=== PATIENT | female | born 1990 | race Caucasian/White ===

== ENCOUNTER → 2017-07-18 14:38 | Outpatient (CLI) | payer OTHER, SELFPAY ==
--- NOTE | 2017-07-18 14:43 | US_ITS ---
STUDY: ULTRASOUND TRANSVAGINAL CLINICAL: Female, 26 years old. Pelvic pain. History of polycystic ovarian syndrome. TECHNIQUE: Transabdominal and Transvaginal COMPARISON: None. FINDINGS: Normal uterine size measuring 7.2 x 4.0 x 3.2 cm in maximal craniocaudal dimension. There are no myometrial masses. Normal endometrial thickness measuring 6 mm. There are no endometrial masses, and there is no fluid in the endometrial cavity. Endometrial echoes are hyperechoic. Normal uterine cervix. Right ovary measures 3.4 x 3.2 x 2.1 cm. Numerous relatively uniform small follicles are seen. Left ovary measures 3.1 x 3.3 x 2.5 cm. Numerous relatively uniform small follicles are seen. There is no free fluid in the pelvis. Polycystic ovary disease: The appearance of the ovaries is consistent with polycystic ovarian syndrome, but note that the condition requires certain clinical and historical findings. Correlate clinically. US/Pelvic (Non ) IMPRESSION: No definite abnormality. The appearance of the ovaries can be seen with polycystic ovarian syndrome. Electronically Signed: Jesus Bocanegra MD at 10:00 EDT , Service support ,
--- NOTE | 2017-07-18 15:05 | US_ITS ---
STUDY: ULTRASOUND TRANSVAGINAL CLINICAL: Female, 26 years old. Pelvic pain. History of polycystic ovarian syndrome. TECHNIQUE: Transabdominal and Transvaginal COMPARISON: None. FINDINGS: Normal uterine size measuring 7.2 x 4.0 x 3.2 cm in maximal craniocaudal dimension. There are no myometrial masses. Normal endometrial thickness measuring 6 mm. There are no endometrial masses, and there is no fluid in the endometrial cavity. Endometrial echoes are hyperechoic. Normal uterine cervix. Right ovary measures 3.4 x 3.2 x 2.1 cm. Numerous relatively uniform small follicles are seen. Left ovary measures 3.1 x 3.3 x 2.5 cm. Numerous relatively uniform small follicles are seen. There is no free fluid in the pelvis. Polycystic ovary disease: The appearance of the ovaries is consistent with polycystic ovarian syndrome, but note that the condition requires certain clinical and historical findings. Correlate clinically. US/Transvaginal Non- IMPRESSION: No definite abnormality. The appearance of the ovaries can be seen with polycystic ovarian syndrome. Electronically Signed: Jesus Bocanegra MD at 10:00 EDT , Service support ,
[2017-07-18 17:53] LABS: hCG Titer Quant., Serum < 1 mIU/mL (<9 non-preg)
[2017-07-18 17:58] LABS: Progesterone Level 1.03 ng/mL (See Comment)
[2017-07-18 17:59] LABS: Estradiol 42.8 pg/mL; T4 Free Direct 0.94 ng/dL (0.76-1.46); Thyroid Stim Hormone (TSH) 1.23 uIU/mL (0.358-3.74)
[2017-07-18 18:03] LABS: Hematocrit 42.9 % (37-47); Hemoglobin 13.9 g/dl (12.0-15.0); Mean Corp Hgb Conc 32.4 g/gl (32-36); Mean Corpuscular Hgb 29.4 pg (27.0-32.0); Mean Corpuscular Volume 90.7 fL (81-99); Mean Platelet Vol. 10.5 fl (6.2-12.0); Platelet Count 329 K/mm3 (150-450); RBC Distribution Width CV 12.5 % (11.6-14.6); RBC Distribution Width SD 41.4 fl (35.1-43.9); Red Blood Count 4.73 M/mm3 (4.2-5.4)
[2017-07-18 18:17] LABS: Scan Indicated on CBC? Y/N NO
[2017-07-18 18:39] LABS: Hemoglobin A1c 4.7 % (4.2-6.3)
== END ==
LOC: USHP 15:44 → WOBLAB 15:44
PROVIDERS: Family Provider Physician Assistant; PCP Physician Assistant; Visit Provider Obstetrics & Gynecology
DX: E28.2 Polycystic ovarian syndrome (principal); N92.5 Other specified irregular menstruation; R10.2 Pelvic and perineal pain
CPT/HCPCS: 36415; 82670; 83036; 84144; 84403; 84439; 84443; 84481; 84702; 85027

== ENCOUNTER → 2017-07-22 13:39 | Outpatient (CLI) | payer OTHER, SELFPAY ==
[2017-07-22 17:57] LABS: Follicle Stimulating Hormone 4.6 mIU/mL; Luteinizing Hormone 10.5 mIU/mL
[2017-07-22 18:00] LABS: Progesterone Level 1.14 ng/mL (See Comment)
== END ==
PROVIDERS: Visit Provider Obstetrics & Gynecology
DX: N92.5 Other specified irregular menstruation (principal)
CPT/HCPCS: 36415; 83001; 83002; 84144; 84403

== ENCOUNTER → 2018-02-16 14:49 | Outpatient (CLI) | payer OTHER, SELFPAY ==
[2018-02-21 11:05] LABS: HPV Reflexed? NOT INDICATED
== END ==
PROVIDERS: Visit Provider Obstetrics & Gynecology
DX: Z12.4 Encounter for screening for malignant neoplasm of cervix (principal)
CPT/HCPCS: 88175; G0145

== ENCOUNTER → 2023-07-11 | Outpatient (CLI) | payer BC, SELFPAY ==
[2023-07-11 10:16] LABS: AST(SGOT) 16 U/L (15-37); Alanine Aminotransfer ALT/SGPT 20 U/L (13-56); Albumin, Serum 3.9 g/dL (3.2-5.0); Alkaline Phosphatase 80 U/L (45-117); Bilirubin, Direct 0.09 mg/dL (0.00-0.30); Globulin 4.3 g/dL (2.2-4.2); Protein, Total 8.2 g/dL (6.4-8.2)
== END | disposition home or self-care (01) ==
LOC: PAVLAB 09:12
PROVIDERS: PCP Physician Assistant; Referring Provider Surgery; Visit Provider Surgery
DX: K82.8 Other specified diseases of gallbladder (principal)
CPT/HCPCS: 36415; 80076

== ENCOUNTER 2023-07-15 09:27 | Day surgery (SDC) | payer BC, SELFPAY ==
[2023-07-15] VITALS (10 sets, daily range): BP systolic 110–127; BP diastolic 79–90; PULSE 59–79; RESP 16; TEMP 36.1–36.9; O2SAT 92–98; BMI 27.5
--- NOTE | 2023-07-15 | GALL_PTH ---
PATHOLOGY RESULTS PATIENT: SHLOMO PAULSON LOC: [facility] – [place] U#:[id number] AGE/SX: 32/F ROOM: RE07/15/[address]: Dr. Silvia Baptiste MD : 1990 BED: DIS: 07/15/2023 SPEC #: [id number] RECD: 07/15/23 13:18 STATUS: NAREN RESheila #: [id number] JOSEFINA: 07/15/23 00:[address]: Silvia Baptiste DEPT: SURGICAL PATHOLOGY RECD BY: Omer Rico ENTERED: 07/18/23 10:33 SP TYPE: DOMINIC LARA DR: PEACE Rose Tissues: Gallbladder, NOS Procedures: Surgery Specimen Level III HEADER OPERATION: Laparoscopic, Cholecystectomy with IOC PRE-OP DIAGNOSIS: Gallbladder sludge, constipation, abdominal pain TISSUE SUBMITTED: Gallbladder MICROSCOPIC DIAGNOSIS Gallbladder, cholecystectomy: Chronic cholecystitis AM/mr 07/19/23 MICROSCOPIC DESCRIPTION Slides are reviewed. GROSS DESCRIPTION Received is one container labeled with the patient's name and designated gallbladder. The specimen consists of a gallbladder measuring 7.5 cm in length and up to 3.0 cm in diameter. The external surface is pink-hunter, smooth and glistening for the most part. Focally it is granular, hemorrhagic and contains cautery artifact. The gallbladder contains green-yellow mucoid bile and no stones are identified in the container or in the gallbladder. The mucosa is bile-stained and without any mass lesions. The gallbladder wall measures up to 0.2cm in thickness. Increased amount of subserosa fat is noted. Employment Programs Analyst sections from the gallbladder and the cystic duct are submitted in one cassette. / SJ: 07/18/2023 TC:3 CPT: 82370
--- OUTSIDE RECORDS SUMMARY | 2023-07-15 09:52 | XMS RPT_ITS | CCD ---
Author Name Unknown Address [address] [place] [address] Organization [facility] Care Team Providers Care Assistant Infant Teacher Name Role Phone Vahid Lagunas PA-C Unavailable Vahid Lagunas PA-C Unavailable Pain Management Provider Unavailable Unavail able Endocrinology Provider Unavailable Unavailab robin Mercer AUTO CARE CENTER MANAGER, Alona Unavailable Unavailable Pb JOE, Teena Unavailable Unavailable Jose Ramon AUTO CARE CENTER MANAGER, Shahriar Unavailable Unavailable [place] AUTO CARE CENTER MANAGER, Ksenia K Unavailable Unavai emely Jackson AUTO CARE CENTER MANAGER, Kristyn M Unavailable Unavailab robin Real AUTO CARE CENTER MANAGER, Farnaz Unavailable Unavailabl e Елена AUTO CARE CENTER MANAGER, Hali Tracy Unavailable Unavaila ble Unavailable Unavailable Jose AUTO CARE CENTER MANAGER, Sabrina Unavailable Zhang ZIMMERMANN, Lexi Unavailable Unavailabl e [facility] Unavailable VAHID LAGUNAS Attending Unavailable VAHID LAGUNAS Consulting Unavailable VAHID LAGUNAS Primary Care Unavailable VAHID LAGUNAS Admitting Unavailable PROVIDER, UNKNOWN Consulting Unavailable Medications Current Medications Medication Drug Class(es) Dates Sig (Normalized) Sig (Original) [id number] 200 actuat albuterol 0.09 mg/actuat metered dose inhaler (20 sources) beta2-Adrenergic Agonist Start: 02-10-2023 take 2 puff(s) by inhalation every four to six hours as needed Ventolin HFA 90 mcg/actuation aerosol inhaler ; 2 (two) puffs every 4-6 hours as needed for 0 days Quantity: 1 {Applicator} Refills: 5 Ordered: 10-Feb-2023 YONATAN Holcomb Start: 10-Feb-2023 Comments: Medication taken as needed. Completed/Discontinued Medications Medication Drug Class(es) Dates Sig (Normalized) Sig (Original) amitriptyline hydrochloride 10 mg oral tablet (10 sources) Tricyclic Antidepressant Start: 10-21-2021 End: 07-05-2022 take 1 tablet by mouth at bedtime Amitriptyline HCl 10 MG Oral Tablet ; 1 (one) Tablet at bedtime for 0 days Quantity: 30 {Tablet} Refills: 5 Ordered: 05-Jul-2022 YONATAN Albright Start: 21-Oct-2021 End: 05-Jul-2022 Status: Inactive Ethinyl Estradiol / norgestimate (10 sources) Progestin, Estrogen take 1 tablet by mouth once daily Sprintec 28 0.25-35 MG-MCG Oral Tablet ; 1 qd (0.25-35 MG-MCG) Status: Inactive levothyroxine sodium 0.025 mg oral tablet (20 sources) l-Thyroxine Start: 02-20-2021 End: 07-05-2022 take 1 tablet by mouth once daily Levothyroxine Sodium 25 MCG Oral Tablet ; 1 (one) Tablet daily for 0 days Quantity: 30 {Tablet} Refills: 1 Ordered: 05-Jul-2022 YONATAN Albright Start: 20-Feb-2021 End: 05-Jul-2022 Status: Inactive Comments: Please review importance of taking prior to eating. Problems Active Problems Problem Classification Problem Date Documented Da te Episodic/Chronic Abdominal pain (20 sources) Flank pain; Translations: [Right upper quadrant pain] 06-24-2023 Episodic Asthma (20 sources) Asthma; Translations: [Unspecified asthma, uncomplicated] 02-10-2023 Chronic Cardiac dysrhythmias (20 sources) Paroxysmal tachycardia; Translations: [Paroxysmal tachycardia, unspecified] 02-10-2023 Chronic Esophageal disorders (20 sources) Gastroesophageal reflux disease; Translations: [Gastro-esophageal reflux disease without esophagitis] 02-10-2023 Chronic Headache; including migraine (20 sources) Chronic headache disorder; Translations: [Headache] 02-10-2023 Episodic Immunizations and screening for infectious disease (20 sources) Patient encounter status; Translations: [Encounter for screening for respiratory tuberculosis] 01-27-2015 Episodic Malaise and fatigue (20 sources) Fatigue; Translations: [Other fatigue] 01-11-2019 Episodic Other circulatory disease (20 sources) Elevated blood pressure; Translations: [Elevated blood-pressure reading, without diagnosis of hypertension] 02-10-2023 Episodic Other endocrine disorders (20 sources) Polycystic ovary; Translations: [Polycystic ovarian syndrome] 02-10-2023 Chronic Other gastrointestinal disorders (14 sources) Constipation; Translations: [Constipation, unspecified] 06-24-2023 Episodic Other hematologic conditions (20 sources) History of anemia; Translations: [Personal history of diseases of the blood and blood-forming organs and certain disorders involving the immune mechanism] 02-10-2023 Episodic Other screening for suspected conditions (not mental disorders or infectious disease) (11 sources) Screening status; Translations: [Encounter for screening for diabetes mellitus] 01-11-2019 Episodic Other skin disorders (11 sources) Loss of hair; Translations: [Nonscarring hair loss, unspecified] 01-11-2019 Episodic Residual codes; unclassified (11 sources) Immunization status unknown; Translations: [Other specified health status] 01-11-2019 Episodic Unclassified (10 sources) Well adult female - The patient feels well with minor complaints (wants to discuss thyroid and migraines), has decreased energy level and is sleeping poorly. The first day of the last menstrual period was : (01/20/2023). The patient is not using any method of contraception at this time. The patient has a balanced diet and takes supplemental vitamins. The patient exercises 3 - 4 times per week. The patient sleeps 6 hours per night. Note for Well adult female : Saw endo a couple of months ago. Planning to recheck labs in 3-6 months but she doesn't plan to go back. Had TSH of 3.83 in November 2022.Still having headaches despite being on topamax 50mg daily.Having pretty significant heartburn at times. 02-10-2023 Unclassified (10 sources) Rapid heart rate - The onset of the rapid heart rate has been acute and has been occurring in an intermittent pattern for 1 month. The course has been increasing. The rapid heart rate is characterized as increased awareness of heart beats. Precipitating factors include exercise (walking). The symptoms have been associated with chest pain. Note for Rapid heart rate : Pt has some dizziness and sweating with it at times.Has only happened with activity. 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 03-05-2022 Unclassified (10 sources) Follow up for chronic condition - The patient is here for follow-up of hypothyroidism. The patient states that weight has increased. Note for Chronic condition follow-up : Pt is not on thyroid meds but would like to get started on some (has anand's per previous labs but free T4/TSH has been stable/borderline), pt is very fatigued, has wt gain. Exercising daily. Gaining weight. Eating good - no fast food.Currently on menses; on it x 3 weeks; had been 2 months before previous one. 02-18-2021 Unclassified (10 sources) Well adult female - The patient feels well with no complaints, has good energy level and is sleeping well. The first day of the last menstrual period was : (06/2020). The patient is not using any method of contraception at this time. The patient has a balanced diet and takes no supplemental vitamins & iron. The patient does not exercise. The patient sleeps 6 (works 3rd shift) hours per night. 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 07-24-2020 Unclassified (6 sources) Well adult female - The patient feels well with no complaints, has decreased energy level and is sleeping well. The first day of the last menstrual period was : (01/30/[id number]-cn t always has). The patient is not using any method of contraception at this time. The patient has a balanced diet and takes supplemental vitamins. The patient exercises 3 - 4 times per week. The patient sleeps 6 (5-8) hours per night. 02-28-2019 Unclassified (6 sources) [ADDITIONAL REASON] Follow up for chronic condition - The patient is here for follow-up of other condition(s) (asthma, h/o anemia, frequent headaches, PCOS). The patient always takes the prescribed medications. No side effects noted. The patient engages in regular exercise program 3-5 times per week. The patient's dietary compliance is fairly good usually adhering to recommendations. The patient states that breathing effort is stable, there is no recent angina or dyspnea, there are no vision changes or weakness (last eye appointment was 4yrs ago.), pain is generally stable (none), sleep patterns have improved (varies) and headaches have been noticed occasionally. Note for Chronic condition follow-up : Last office visit 01/12/2019.Headaches are managed well with imitrex prn. 02-28-2019 Unclassified (10 sources) Well adult female - The patient feels well with minor complaints (Headaches daily - also gets migraines and nothing helps. Has a baseline headache all the time and then will have migraines about twice a month - nausea/vomiting, located on left side of head. Has done chiro, massages, and seen eye doctor (last yr and was all good). Had brain MRI in [place] around 2010 and was told it was normal. Was given sumatriptan 50mg (knocked her out) and fioricet (made her sick) which didn't help. OTC meds aren't helping. Usually will just go to sleep with an ice back.Does have pain in her neck - more on the left side. No numbness/tingling in the arms. Can feel a knot on side of neck at times.), has good energy level and is sleeping well. The first day of the last menstrual period was : (jan 04 and not regular even on OCP - sees [facility] (last appt was 06/2016); on OCP for PCOS but isn't effective (told [facility] this but no change was made)). The current method of contraception is: oral contraceptives (they thought these would help also with headaches but is not). The patient has a balanced diet and takes no supplemental vitamins & iron. The patient does not exercise. The patient sleeps 6 hours per night. 02-24-2017 Unclassified (4 sources) Follow up for chronic condition - The patient is here for follow-up of other condition(s) (asthma, h/o anemia, frequent headaches, PCOS). The patient always takes the prescribed medications. No side effects noted. The patient engages in regular exercise program 3-5 times per week. The patient's dietary compliance is fairly good usually adhering to recommendations. The patient states that breathing effort is stable, there is no recent angina or dyspnea, there are no vision changes or weakness (last eye appointment was 4yrs ago.), pain is generally stable (none), sleep patterns have improved (varies) and headaches have been noticed occasionally. Note for Chronic condition follow-up : Last office visit 01/12/2019.Headaches are managed well with imitrex prn. 02-28-2019 Unclassified (4 sources) [ADDITIONAL REASON] Well adult female - The patient feels well with no complaints, has decreased energy level and is sleeping well. The first day of the last menstrual period was : (01/30/[id number] t always has). The patient is not using any method of contraception at this time. The patient has a balanced diet and takes supplemental vitamins. The patient exercises 3 - 4 times per week. The patient sleeps 6 (5-8) hours per night. 02-28-2019 Unclassified (7 sources) Abdominal pain - The onset of the abdominal pain has been gradual and has been occurring in a persistent pattern for 3 weeks. The course has been constant. The pain is described as a moderate dull ache, pressure sensation, fullness and cramping. The pain is located in the right upper quadrant and does not radiate. The symptoms are aggravated by meals (1/2 to 1 hour after eating) but have no relieving factors. The symptoms have been associated with bloating and constipation. Note for Abdominal pain : Patient states the worst pain and discomfort follows meals, no matter what she eats (worse pain if has fattier meals).Some chills at times.Chronic constipation - BM on Tuesday and then none until yesterday - had diarrhea then.No heartburn lately. 06-24-2023 Urinary tract infections (11 sources) Urinary tract infectious disease; Translations: [Urinary tract infection, site not specified] 01-08-2016 Episodic Past or Other Problems Problem Classification Problem Date Documented Date Episodic/Chronic Unclassified (10 sources) Follow up for chronic condition - The patient is here for follow-up of other condition(s) (Asthma, tachycardia, headache). The patient has stopped the recommended medications (Had heart monitor, has stopped taking medications d/t HR.). The patient engages in regular exercise program 3-5 times per week. The patient states that the disease has no overall impact. Note for Chronic condition follow-up : Stopped headache med and still had tachycardia --- HR up to 180 so went to ER and it showed sinus tachy - was advised to stop unithroid and once she did it resolved. Did try taking it 2 weeks again in Jun and immediately had symptoms again.Endo is going to recheck labs in a few weeks and decide if med needed.Never did stress ECHO.She would like her hgba1c checked today. 07-05-2022 Unclassified (10 sources) Well adult female - The patient feels well with no complaints. The first day of the last menstrual period was : (September LASTED 12 DAYS). The patient has a balanced diet. The patient exercises 3 - 4 times per week ([employer]). The patient sleeps 8 hours per night. Note for Well adult female : Typically periods are normal - this was the first month it wasn't - usually only lasts 4-6 days.Headaches have increased over the past couple of months. Imitrex effective. 10-21-2021 Unclassified (10 sources) Headache - The onset of the headache has been gradual and has been occurring in an intermittent (2 this week, has regular headaches daily) pattern for years (Had been on medicaiton in the past and they worked (unsure of names); was on a daily maintenance one and then something as needed. Only took for a short time. Had been doing well and then about 2 months ago she had noticed that they have been more intense- her excedrin is not helping anymore. She was down for 3 days with one recently. Her friend gave her a medication (sumatriptan succinate 100mg) which knocked her our but when she woke up she felt better, little jittery.). The course has been increasing in severity and increasing in frequency. The headache is characterized as pounding. The headache is experienced any time of the day (no diurnal variation). The headache is described as being located in the frontal area (left and then hit will go back, but when it gets worse it is everywhere). The symptoms are aggravated by bright light, but not by noise. The symptoms have been associated with blurring of vision, eye pain, flashing lights (more of specs), nausea, neck pain and vomiting, while the symptoms have not been associated with confusion (more misplaced). Note for Headache : Some neck pain - stiffness/soreness. Does stretching, ice/heat, biofreeze. Saw chiro in the past but that never helped. No known triggers.Brain imaging was done years ago for her headaches and it was normal - told had tension headaches. 01-14-2019 Unclassified (10 sources) sleeping problems - Patient is here with complaining of sleep issues. She has been working 3rd shift for a year. No trouble falling asleep and will slee for 4-5 hours but will feel tired during the day -even right after waking up. She can fall asleep anytime without actually feeling tired. Low energy. Hair is falling out in clumps. History of anemia and no recent iron supplementation. Denies stress/depression.If she is off for a few days in a row she will reverse her sleeping schedule and sleep at night.Does have a crawling/itching feeling in her legs at times; no episodes of paralysis. Some nightmares. 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 The first day of the last menstrual period was : (02/07/2018 not regular; just starting progesterone (Dr. Zuniga)). The patient is not using any method of contraception at this time. The patient has a balanced diet and takes no supplemental vitamins & iron. The patient exercises 3 - 4 times per week. The patient sleeps 5 hours per night. 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 The first day of the last menstrual period was : (-; are not regular; was put on sprintec in Jun per city comptroller which has helped some; was told she has PCOS). The current method of contraception is: oral contraceptives. The patient has a balanced diet and takes no supplemental vitamins & iron. The patient does not exercise. The patient sleeps 5 hours per night. 01-29-2016 Unclassified (10 sources) UTI - Symptoms include dysuria, urinary frequency and urinary urgency, but do not include abdominal pain or back pain. There is no radiation. The patient describes the pain as burning. Onset was sudden 2 day(s) ago. The symptoms occur constantly. The patient describes this as moderate in severity and unchanged. Associated symptoms do not include fever, chills, nausea or vomiting. Note for UTI : LMP was about 1 week ago. 01-08-2016 Unclassified (10 sources) Well adult female - The patient feels well with no complaints, has good energy level and is sleeping well. The first day of the last menstrual period was : (beginning of last month; periods are not regular). The patient is not using any method of contraception at this time. The patient takes no supplemental vitamins & iron. The patient exercises none (periodically she does do ). The patient sleeps 5 hours per night. Note for Well adult female : Previous provider was Dr. Rebolledo. She is going to [facility] for respiratory therapy. 01-15-2015 NEGATED: Highlighted row has been ruled out!Unclassified (10 sources) No Known / History Onset: 01-15-2015 02-28-2019 Results Test Name Value Interpretation Reference Range Facil ity Vital Signs Date Time Vital Sign Value Performing Clinician Faci lity 06-24-2023 09:07-0500 Body height 170.18 cm Lexi Holcomb LPN [facility] 06-24-2023 09:07-0500 Body mass index (BMI) [Ratio] 27.25 kg/m2 Lexi Holcomb LPN [facility] 06-24-2023 09:07-0500 Body surface area Derived from formula 1.91 m2 Lexi Holcomb LPN [facility] [employer] 06-24-2023 09:07-0500 Body temperature 99.2 [degF] Lexi Holcomb AUTO CARE CENTER MANAGER [facility] Encounters Encounter Date Encounter Type Care Provider Facility Start: 06-30-2023 End: 06-30-2023 Orders Vahid Lagunas PA-C Work Phone: [facility], [facility]. Start: 06-30-2023 End: 06-30-2023 ambulatory VAHID LAGUNAS [facility] Start: 06-24-2023 End: 06-24-2023 Office outpatient visit 15 minutes Vahid Lagunas PA-C Work Phone: [facility]. Start: 06-24-2023 Review Vahid Lagunas PA-C Work Phone: [facility]. Start: 02-10-2023 End: 02-10-2023 Patient encounter procedure Vahid Lagunas PA-C Work Phone: [facility]. Start: 02-10-2023 End: 02-10-2023 Patient encounter status Vahid Lagunas PA-C Work Phone: [facility] Start: 07-05-2022 End: 07-05-2022 Office outpatient visit 25 minutes Vahid Lagunas PA-C Work Phone: [facility]. Start: 03-05-2022 End: 03-05-2022 Office outpatient visit 40 minutes Vahid Lagunas PA-C Work Phone: [facility]. Start: 10-21-2021 End: 10-21-2021 Patient encounter procedure Vahid Lagunas PA-C Work Phone: [facility]. Start: 10-21-2021 End: 10-21-2021 Patient encounter status Vahid Lagunas PA-C Work Phone: [facility] Start: 03-13-2021 End: 03-13-2021 Orders Vahid Lagunas PA-C Work Phone: [facility]. Start: 02-20-2021 End: 02-20-2021 Orders Vahid Lagunas PA-C Work Phone: [facility]. Start: 02-18-2021 End: 02-18-2021 Office outpatient visit 25 minutes Vahid Lagunas PA-C Work Phone: [facility]. Start: 07-24-2020 End: 07-24-2020 Patient encounter procedure Vahid Lagunas PA-C Work Phone: [facility] Start: 07-24-2020 End: 07-24-2020 Periodic preventive med est patient 18-39 yrs Vahid Lagunas PA-C Work Phone: [facility]. Start: 12-31-2019 End: 12-31-2019 Patient encounter procedure Vahid Baldwiner PA-C Work Phone: [facility]. Start: 02-28-2019 End: 02-26-2019 Historical Summary Vahid Lagunas PA-C Work Phone: [facility]. Start: 02-28-2019 End: 02-28-2019 Patient encounter procedure Farnaz Real LPN [facility] Start: 02-28-2019 End: 02-28-2019 Periodic preventive med est patient 18-39 yrs Vahid Lagunas PA-C Work Phone: [facility]. Start: 01-18-2019 End: 01-18-2019 Orders Vahid Baldwiner PA-C Work Phone: [facility]. Start: 01-12-2019 End: 01-14-2019 Patient encounter procedure Vahid Baldwiner PA-C Work Phone: [facility]. Start: 05-29-2018 End: 05-29-2018 Orders Vahid Baldwiner PA-C Work Phone: [facility]. Start: 05-25-2018 End: 05-25-2018 Office outpatient visit 15 minutes Vahid Lagunas PA-C Work Phone: [facility]. Start: 02-23-2018 End: 02-24-2018 Patient encounter status Vahid Baldwiner PA-C Work Phone: [facility] Start: 02-23-2018 End: 02-24-2018 Periodic preventive med est patient 18-39 yrs Vahid Lagunas PA-C Work Phone: [facility]. Start: 02-21-2018 End: 02-21-2018 Historical Summary Vahid Baldwiner PA-C Work Phone: [facility]. Start: 02-23-2017 End: 02-24-2017 Patient encounter status Vahid Baldwiner PA-C Work Phone: [facility] Start: 02-23-2017 End: 02-24-2017 Periodic preventive med est patient 18-39 yrs Vahid Baldwiner PA-C Work Phone: [facility]. Start: 02-21-2017 End: 02-21-2017 Historical Summary Vahid Lagunas PA-C Work Phone: [facility]. Start: 01-29-2016 End: 01-29-2016 Patient encounter procedure Vahid Baldwiner PA-C Work Phone: [facility]. Start: 01-29-2016 End: 01-29-2016 Patient encounter status Vahid Baldwiner PA-C Work Phone: [employer] Start: 01-08-2016 End: 01-08-2016 Patient encounter procedure Vahid Baldwiner PA-C Work Phone: [facility]. Start: 12-29-2015 End: 12-29-2015 Orders Vahid Lagunas PA-C Work Phone: [facility]. Start: 12-19-2015 End: 12-19-2015 Orders Vahid Lagunas PA-C Work Phone: [facility]. Start: 01-27-2015 End: 01-27-2015 Orders Vahid Lagunas PA-C Work Phone: [facility] Start: 01-15-2015 End: 01-15-2015 Patient encounter procedure Vahid Lagunas PA-C Work Phone: [facility] Start: 01-15-2015 End: 01-15-2015 Patient encounter status Vahid Lagunas PA-C Work Phone: [employer]; [employer] Patient encounter procedure Alona Mercer AUTO CARE CENTER MANAGER [employer]. Patient encounter status Kristyn Cartwright Ang pedraza AUTO CARE CENTER MANAGER [employer]. Patient encounter status Vahid Lagunas PA-C Work Phone: [employer] [facility] Patient encounter status Lexi Holcomb AUTO CARE CENTER MANAGER [employer]. Procedures Date Procedure Procedure Detail Performing Clinician Start: 06-24-2023 End: 06-30-2023 Us abdominal real time w/image limited Vahid Lagunas PA-C Work Phone: Start: 02-10-2023 End: 02-10-2023 Depression screening Vahid Lagunas PA -C Work Phone: Start: 02-10-2023 End: 02-10-2023 Scr dep neg, no plan reqd Vahid east PA-C Work Phone: Start: 03-05-2022 End: 03-11-2022 Ecg routine ecg w/least 12 lds i&r only Vahid Lagunas PA-C Work Phone: Plan of Treatment Date Care Activity Detail Author Start: 06-24-2023 Us abdominal real time w/image limited RUQ/Gallbladder Ultrasound ([id number]) Start: 24-Jun-2023 Intent [facility] Start: 06-02-2023 Assay of free thyroxine T4 FREE (60844) Start: 02-Jun-2023 Request [facility] Start: 06-02-2023 Assay of thyroid stimulating hormone tsh TSH (THYROID STIMULATING HORMONE) (96028) Start: 02-Jun-2023 Request [facility] Start: 06-02-2023 Assay of triiodothyronine t3 free T3 FREE ([id number]) Start: 02-Jun-2023 Request [facility]; [facility] Start: 03-05-2022 End: 03-15-2022 Echo tthrc r-t 2d w/wo m-mode complete rest&st Stress Echo (20723) Date: 05-Mar-2022 [facility]; [facility] Immunizations Immunization Date Immunization Notes Care Provider Fa keena 02-28-2019 influenza, injectabl e, quadrivalent, contains preservative Vahid Lagunas PA-C Work Phone: [facility]; [facility] Payers Date Payer Category Payer Unknown [id number] Unknown LIANA Unknown [id number] Social History Date Type Detail Facility Caffeine Use Caffeine Use [employer]; [facility]. Tobacco Use: Tobacco Use: ; Never smoker. [facility]; [facility]. Female [employer]; [facility] Work Phone: Never smoked tobacco [facility]; [facility] Work Phone: Summary Purpose Family History arthritis Status:Active Comments:Mother. Father. grandmother Breast Cancer Status:Active cancer-grandmothers Status:Active Comments:terry ast cancer - maternal and paternal gmas Cerebrovascular Accident Status:Active Comment s:Mother. grandmother Diabetes Mellitus Type II Status:Active Commen ts:grandmother Hypertension Status:Active Comments:Mother. uncles arthritis Status:Active Comments:Mother. Father. grandmother Breast Cancer Status:Active cancer-grandmothers Status:Active Comments:terry ast cancer - maternal and paternal gmas Cerebrovascular Accident Status:Active Comment s:Mother. grandmother Diabetes Mellitus Type II Status:Active Commen ts:grandmother Hypertension Status:Active Comments:Mother. uncles arthritis Status:Active Comments:Mother. Father. grandmother Breast Cancer Status:Active cancer-grandmothers Status:Active Comments:terry ast cancer - maternal and paternal gmas Cerebrovascular Accident Status:Active Comment s:Mother. grandmother Diabetes Mellitus Type II Status:Active Commen ts:grandmother Hypertension Status:Active Comments:Mother. uncles arthritis Status:Active Comments:Mother. Father. grandmother Breast Cancer Status:Active cancer-grandmothers Status:Active Comments:terry ast cancer - maternal and paternal gmas Cerebrovascular Accident Status:Active Comment s:Mother. grandmother Diabetes Mellitus Type II Status:Active Commen ts:grandmother Hypertension Status:Active Comments:Mother. uncles arthritis Status:Active Comments:Mother. Father. grandmother Breast Cancer Status:Active cancer-grandmothers Status:Active Comments:terry ast cancer - maternal and paternal gmas Cerebrovascular Accident Status:Active Comment s:Mother. grandmother Diabetes Mellitus Type II Status:Active Commen ts:grandmother Hypertension Status:Active Comments:Mother. uncles arthritis Status:Active Comments:Mother. Father. grandmother Breast Cancer Status:Active cancer-grandmothers Status:Active Comments:terry ast cancer - maternal and paternal gmas Cerebrovascular Accident Status:Active Comment s:Mother. grandmother Diabetes Mellitus Type II Status:Active Commen ts:grandmother Hypertension Status:Active Comments:Mother. uncles arthritis Status:Active Comments:Mother. Father. grandmother Breast Cancer Status:Active cancer-grandmothers Status:Active Comments:terry ast cancer - maternal and paternal gmas Cerebrovascular Accident Status:Active Comment s:Mother. grandmother Diabetes Mellitus Type II Status:Active Commen ts:grandmother Hypertension Status:Active Comments:Mother. uncles arthritis Status:Active Comments:Mother. Father. grandmother Breast Cancer Status:Active cancer-grandmothers Status:Active Comments:terry ast cancer - maternal and paternal gmas Cerebrovascular Accident Status:Active Comment s:Mother. grandmother Diabetes Mellitus Type II Status:Active Commen ts:grandmother Hypertension Status:Active Comments:Mother. uncles arthritis Status:Active Comments:Mother. Father. grandmother Breast Cancer Status:Active cancer-grandmothers Status:Active Comments:terry ast cancer - maternal and paternal gmas Cerebrovascular Accident Status:Active Comment s:Mother. grandmother Diabetes Mellitus Type II Status:Active Commen ts:grandmother Hypertension Status:Active Comments:Mother. uncles arthritis Status:Active Comments:Mother. Father. grandmother Breast Cancer Status:Active cancer-grandmothers Status:Active Comments:terry ast cancer - maternal and paternal gmas Cerebrovascular Accident Status:Active Comment s:Mother. grandmother Diabetes Mellitus Type II Status:Active Commen ts:grandmother Hypertension Status:Active Comments:Mother. uncles Advance Directives No Advanced Directives Records FoundNo Advanced Directives Records FoundNo Advanced Directives Records Found Additional Source Comments INFORMATION SOURCE (unrecogn ized section and content) DATE CREATED AUTHOR AUTHOR'S ORGANIZ ATION 03/06/2022 [facility] DATE CREATED AUTHOR AUTHOR'S ORGANIZ ATION 07/02/2023 [facility] FOR RECORDS PERTAINING TO PATIENTS WHO ARE OR HAVE BEEN ENROLLED IN A CHEMICAL DEPENDENCY/SUBSTANCEABUSE PROGRAM, SOME INFORMATION MAY BE OMITTED. This clinical summary was aggregated from multiple sources. Caution should be exercised in using it in the provision of clinical care. This summary normalizes information from multiple sources, and as a consequence, information in this document may materially change the coding, format and clinical context of patient data. In addition, data may be omitted in some cases. CLINICAL DECISIONS SHOULD BE BASED ON THE PRIMARY CLINICAL RECORDS. [employer] provides no warranty or guarantee of the accuracy or completeness of information in this document.
--- NOTE | 2023-07-15 09:56 | PCM.HP.BLA ---
History and Physical Date of Admission: 07/15/23 Date of Service: 07/11/23 MR#: [id number] Acct: [id number] Name: SHLOMO PAULSON Rep #: [id number] : 1990 Provider: Dr. Silvia Baptiste MD Age/Sex: 32/F Location: [facility] Status: Signed Intake Vital Signs 07/11/2407:37 Weight: 176 lb BP 137/97 H Blood Pressure Location Lt brachial Position Sitting Respiration 18 Pulse 66 Pulse Source Monitor Pulse Oximetry (%) 97 Oxygen Delivery Method room air Intake Visit Reasons: GALLBLADDER Chief Complaint: gallbladder Is patient in pain?: Yes Allergies No Known Allergies Allergy (Verified 07/11/23 08:38) Medications albuterol sulfate 90 mcg/actuation aerosol inhaler (Ventolin HFA) 2 puff inhalation Q6H PRN 07/11/23 [History Confirmed 07/11/23] levothyroxine 13 mcg capsule (Tirosint) 13 mcg PO DAILY 07/11/23 [History Confirmed 07/11/23] omeprazole 20 mg capsule,delayed release 20 mg PO DAILY 07/11/23 [History Confirmed 07/11/23] sumatriptan succinate 25 mg tablet (Imitrex) 25 mg PO ONCE PRN 07/11/23 [History Confirmed 07/11/23] topiramate 50 mg tablet (Topamax) 50 mg PO BID 07/11/23 [History Confirmed 07/11/23] PFSH Medical History (Updated 07/11/23 @ 14:[address] Silvia Baptiste MD) Acid reflux Thyroid disease Surgical History (Updated 07/11/23 @ 08:36 by Estephania Garcia) History of appendectomy Family History (Updated 07/11/23 @ 08:36 by Estephania Garcia) Grandmother Breast cancer DiabetesMother Hypertension CVA (cerebral vascular accident) Social History (Updated 07/11/23 @ 08:37 by Estephania Garcia) Smoking Status: Never smoker alcohol intake: never substance use type: does not use HPI HPI HPI: 32-year-old female presents due to right upper quadrant pain and gallbladder sludge/thickened wall. Patient states she is having issues for about a month states she will have stabbing pain in right upper quadrant about an hour after eating. Patient did change her diet to avoid the fatty or greasy foods. Her patient states she can get discomfort with none fatty or greasy foods. Patient has been on omeprazole 20 mg p.o. daily for about the last year for her reflux she states with that she gets epigastric pain patient denies having any pain on the medication. Patient does have issues with constipation states she goes about every 4 days it is hard she does take MiraLAX daily to go every 4 days. Patient did have a colonoscopy in 2009 which states was normal. Patient is unsure how much fiber she gets does think that she drinks enough water. ROS General General: Yes weight change and fatigue; No appetite, colon cancer or breast cancer HEENT HEENT: No difficulty swallowing, eye injury, eye surgery, swollen glands or hoarseness Endo Endocrine: Yes thyroid disease; No diabetes mellitus, thyroid cancer, Hair loss, heat intolerance or cold intolerance Skin Skin: No rash or changing moles Musc Musculoskeletal: No back problems, arthritis, rheumatoid arthritis, gout or joint pain Cardio Cardiovascular: No murmur, pacemaker, heart disease, atrial fibrillation, high blood pressure, heart attack, heart stent, palpitations, shortness of breat with exertion or chest pain Psych Psychiatric: No depression, anxiety or hearing voices Resp Respiratory: No shortness of breath, No sleep apnea, No cough, No COPD, Yes asthma, No emphysema and No wheezing Gastro Gastrointestinal: Yes abdominal pain, No nausea or vomiting, No diarrhea, Yes constipation, No blood in stool, Yes acid reflux, No hemorrhoids, No ulcers, Yes gallbladder problem and No black,tarry stools Pito Hematologic: No blood thinners, No blood disorders, No bleeding, No anemia and No blood clots Neuro Neurologic: No numbness and No tingling Exam Const General: cooperative, healthy appearing, comfortable and no acute distress [facility] Head: normocephalic and atraumatic Neck Neck: supple Resp Effort & Inspection: normal respiratory effort Cardio Rate: regular rate GI Inspection: non-distended Palpation: soft, no hernias and tender in the epigastrum, in the LLQ, in the RLQ and in the RUQ Skin General: no rashes or lesions noted Neuro General: CN's II-XI intact bilaterally Extrem General: normal to inspection Psych Mental Status: mental status grossly normal Attitude: cooperative Assessment and Plan Assessment and Plan (1) Gallbladder sludge: Status: Acute (2) Constipation: Status: Acute (3) Abdominal pain: Status: Acute Orders: Orders Liver Profile Today K82.8 - Other specified diseases of gallbladder Plan Patient's lower abdominal pain likely due to constipation as patient states she is approaching the 4 days. Did discuss importance of fiber in adequate hydration to help with constipation. Gave patient sheet about a high-fiber diet and importance of going slow when adding fiber to your diet. Also encourage patient to take additional MiraLAX if she is not going every 2 to 3 days instead of just once a day. Did review patient's ultrasound personally and with the patient. There is small amount of sludge and thickening of the gallbladder wall no pericholecystic fluid, normal common bile duct. Did check it LFTs?all within normal range. Reviewed the anatomy with the patient and discussed the procedure: laparoscopic cholecystectomy with possible cholangiograms, possible open. Review risks including but not limited to bleeding, infection, hernia, bile leak, retained gallstones requiring another procedure ERCP- Endoscopic Retrograde Cholangiopancreatography, injury to another organ (bile ducts, common bile duct, small bowel, etc.) and conversion to an open procedure. All questions were answered. Silvia Baptiste M.D. Pager: [phone] [facility] [address] [place] [address], [facility], [address] [place] [address] Office: [phone] Coding Level of Care Code Off vis,new,level 3 Diagnoses Gallbladder sludge K82.8 Constipation K59.00 Abdominal pain R10.9 07/11/23 1432 <Electronically signed by Silvia Baptiste MD> Date Silvia Baptiste MD
[2023-07-15 09:59] LABS: Internal QC Validated? YES +Cl - CLEAR BKGD; Pregnancy, Urine Negative Negative; Record Kit Lot#,Urine Preg HCG0000718086
--- NOTE | 2023-07-15 10:00 | RAD_ITS ---
STUDY: INTRAOPERATIVE CHOLANGIOGRAM. REASON FOR EXAM: Female, 32 years old. LAP EVANGELISTA WITH IOC FLUOROSCOPY TIME (if supplied): ( 6 seconds ) minutes/seconds. 2.88 mGy. TECHNIQUE: An intraoperative cholangiogram was performed by the surgeon. Imaging was submitted. COMPARISON: None. FINDINGS: The intra and extrahepatic biliary ducts are visualized. They are unremarkable. Free flow of contrast into the duodenum. RAD/Cholangiogram/ O R,Initial IMPRESSION: Unremarkable intraoperative cholangiogram. Electronically Signed: Demarco Pierce MD at 12:26 EDT ,
[2023-07-15] MEDS: Lactated Ringers 1,000 ML 15 ML IV (10:15)
[2023-07-15 10:21] LABS: Hematocrit 35.4 % (37-47); Hemoglobin 11.6 g/dL (12.0-15.0); Mean Corp Hgb Conc 32.8 g/dL (32-36); Mean Corpuscular Hgb 28.8 pg (27.0-32.0); Mean Corpuscular Volume 87.8 fL (81-99); Mean Platelet Vol. 9.7 fl (6.2-12.0); Platelet Count 348 K/mm3 (150-450); RBC Distribution Width CV 12.7 % (11.6-14.6); RBC Distribution Width SD 41.1 fl (35.1-43.9); Red Blood Count 4.03 M/mm3 (4.2-5.4); White Blood Count 5.5 K/mm3 (4.4-11.0)
[2023-07-15 10:44] LABS: Anion Gap 10 (5-15); BUN 14 mg/dL (7-18); BUN/Creat Ratio 19.9 RATIO (10-20); Calcium,Total 8.6 mg/dL (8.5-10.1); Chloride 111 mmol/L (98-107); EST Glomerular Filtration Rate 103 mL/min (>60); Est Glom Filt Rate - Afr Amer 124 mL/min (>60); Estimated Creatinine Clearance 126.58 ml/min; Glucose 106 mg/dL (74-106); Potassium 3.8 mmol/L (3.5-5.1); Sodium Level 141 mmol/L (136-145); Thyroid Stim Hormone (TSH) 2.75 uIU/mL (0.358-3.74)
[2023-07-15] MEDS: Cefazolin 2 GM in 0.9% Normal Saline (100mL Bag) 100 ML IV (10:59)
--- NOTE | 2023-07-15 12:09 | PCM.OPRPT ---
Report of Operation Date of Procedure: 07/15/23 Pre-Operative Diagnosis: Gallbladder sludge, right upper quadrant abdominal pain Post-Operative Diagnosis: Same Surgery/Procedure Performed:: Laparoscopic cholecystectomy with cholangiograms Surgeon: Silvia Baptiste power ballast machine operator: Tremayne Lopez Type of Anesthesia: General/Supplemental Anesthesiologist: Azam Denise Special Medications: Ancef 2 g IV x 1 Specimen's removed: Gallbladder Estimated Blood Loss (mL): 10 cc Description of Procedure: Indications: this is a 32 year-old female who developed abdominal pain/nausea/vomiting and on workup was found to have gallbladder sludge, with a normal common bile duct. Laparoscopic cholecystectomy was elected. Description procedure: The patient was placed on operating table in supine position. A timeout was completed verifying correct patient, procedure, site, position and special equipment prior to beginning procedure. General Anesthesia was induced. The abdomen was prepped and draped in usual sterile fashion. An incision was made in the natural skin line above the umbilicus. The fascia was elevated and incised. The peritoneum was elevated and incised. Entry into the peritoneum was confirmed visually and no bowel was noted in the vicinity of the incision. Mantilla trocar was placed. The abdomen was insufflated with carbon dioxide to a pressure of 12-15 mmHg. Patient tolerated insufflation well. The laparoscope was then inserted and abdomen inspected. No injuries from initial trocar placement were noted. Additional trochars were then inserted in the following locations 5 mm trocar in the epigastrium and 2 more 5 mm trochars along the right costal margin. The abdomen was inspected no abnormalities were found. The table is placed in reverse Trendelenburg position with the right side up. The dome of the gallbladder was grasped with atraumatic grasper passed through the lateral port and retracted over the dome of the liver. Infundibulum was then grasped with atraumatic grasper through the midclavicular port and retracted to the right lower quadrant. This maneuver exposed Calot's triangle. The peritoneum overlying the gallbladder infundibulum was then incised and cystic duct and artery identified and circumferentially dissected. Ordaz catheter was used for cholangiograms. The cholangiogram showed good filling of the common bile duct into the duodenum with no filling defects, good filling of the right and left bile ducts as well. The cystic duct and artery were then doubly clipped and divided close to the gallbladder. The gallbladder then dissected from its peritoneal attachments by electrocautery. Hemostasis was checked and the gallbladder and contained stones were removed using the endoscopic retrieval bag through the umbilical port. The gallbladder is passed off table as specimen. The gallbladder fossa was irrigated with saline and hemostasis obtained. There is no evidence of bleeding from the gallbladder fossa or cystic artery leakage of bile from the cystic duct stump. Secondary trochars removed under direct vision. No bleeding was noted the trocar sites. The laparoscope was withdrawn and umbilical trocar removed. The abdomen was allowed to collapse. The fascia of the 12 mm trocar was closed with a [id number] 0 Vicryl suture. The skin was closed with sutures of 4-0 Monocryl and Steri-Strips. The patient was extubated. The patient tolerated procedure well and was taken to the postanesthesia care unit in stable condition. Complications none
[2023-07-15] MEDS: Bupivacaine Mpf 0.5% 30 ML VIAL (12:10)
--- NOTE | 2023-07-15 12:13 | DCINST_ITS ---
Discharge Instructions Diet Discharge Diet: Light diet - advance as tolerated Activity Discharge Activity: May Not Drive (while taking narcotic pain medications.) May shower in (days): 1 Lifting Restrictions: no lifting >20 lbs x 2 wks, no strenuous exercise for 4 wks Dressing / Incision Call your doctor if your incision/area has: Continuous Slow Oozing, Sudden Increased Bleeding, Increased Pain/ Swelling, Increased Redness, Foul Smelling Discharge and Swelling at the incision site Call your doctor if you observe: Fever of 101 or Higher Remove Dressing in: 2 days Cleanse incision/area with: Soap & Water Additional Dressing/Incision Instructions:: Steri-Strips will fall off in 7 to 10 days, if they do not fall off okay to remove after 10 days. Follow Up Care Please Follow Up With: Silvia Baptiste MD When: Call the office for a follow-up appointment 2 weeks; after 5 PM and on the weekends call [phone] with any concerns. Test Results: Test results from this visit will be discussed in further detail at your follow- up appointment, if applicable. Discharge Plan Admission Attending Provider: Silvia Baptiste Primary Care Provider: Chuyita Aden Discharge Orders/Prescriptions Prescriptions: New oxycodone-acetaminophen 5-325 mg tablet 1 - 2 tab PO Q6H PRN (Reason: pain) 3 Days Qty: 14 0RF Continued topiramate [Topamax] 50 mg tablet 50 mg PO BID omeprazole 20 mg capsule,delayed release(DR/EC) 20 mg PO DAILY levothyroxine [Tirosint] 13 mcg capsule 13 mcg PO DAILY albuterol sulfate [Ventolin HFA] 90 mcg/actuation HFA aerosol inhaler 2 puff inhalation Q6H PRN (Reason: shortness of breath or wheezing) sumatriptan succinate [Imitrex] 25 mg tablet 25 mg PO ONCE PRN (Reason: migraine headache) Referrals / Follow Up: Chuyita Aden PA [Primary Care Provider] - Disposition Disposition (needs filled in before D/C Order can be placed): Home, Self Care
[2023-07-15] MEDS: oxyCODONE 5 MG Tablet PO (13:53)
== END 2023-07-15 14:14 | disposition home or self-care (01) ==
LOC: SDC 09:27 → AC 09:29
PROVIDERS: Anesthesiology; PCP Physician Assistant; Referring Provider Physician Assistant; Visit Provider Surgery
PROC: (CPT 47610; principal; 2023-07-15 10:40)
DX: K81.1 Chronic cholecystitis (principal); E03.9 Hypothyroidism, unspecified; K21.9 Gastro-esophageal reflux disease without esophagitis; K83.8 Other specified diseases of biliary tract; Z79.51 Long term (current) use of inhaled steroids; Z79.899 Other long term (current) drug therapy
CPT/HCPCS: 47563; 74300; 76000; 80048; 81025; 84443; 85027; 88304; 93005; J7120; J2405